=== PATIENT | male | born 1980 | race Native Hawaiian/Other Pacific Islander ===

== ENCOUNTER 2020-12-06 14:17 | Outpatient (CLI) | payer BC ==
[2020-12-06 14:33] LABS: PLATELET COUNT 157 K/uL (142-355)
[2020-12-06 15:23] LABS: POTASSIUM 3.4 mmol/L (3.6-5.2)
== END 2020-12-06 19:05 | disposition home or self-care (01) ==
LOC: LABW 14:17
PROVIDERS: ATTEND Nurse Practitioner Family
DX: L40.0 Psoriasis vulgaris (principal); Z79.899 Other long term (current) drug therapy; L40.59 Other psoriatic arthropathy; D48.5 Neoplasm of uncertain behavior of skin; R20.8 Other disturbances of skin sensation; R23.8 Other skin changes
CPT/HCPCS: 36415; 80053; 85027; 86480

== ENCOUNTER 2021-11-21 12:08 | Outpatient (CLI) | payer BC | END 2021-11-21 18:52 | disposition home or self-care (01) | LOC: LABW 12:08 | PROVIDERS: ATTEND Nurse Practitioner Family | DX: L40.0 Psoriasis vulgaris (principal); Z79.899 Other long term (current) drug therapy; L40.59 Other psoriatic arthropathy | CPT/HCPCS: 36415; 86480 ==